=== PATIENT | male | born 1985 | race Caucasian/White ===

== ENCOUNTER 2020-02-18 00:54 | Emergency (ER) | payer MEDICARE, MEDICAID ==
--- NOTE | 2020-02-18 02:10 | RADIOLOGY REPORT (SQ) ---
CLINICAL HISTORY: FOREIGN BODY COMPARISON: None. TECHNIQUE: XR NECK SOFT TISSUE 02/18/2020 12:00 AM CDT FINDINGS: There are degenerative changes of the lower cervical spine. There is no convincing radiopaque foreign body. Prevertebral soft tissues are normal. Epiglottis and aryepiglottic folds are normal. The airway is clear. IMPRESSION: No radiopaque foreign body.
--- NOTE | 2020-02-18 02:40 | ER Document Report ---
ED Foreign Body - General Chief Complaint: Swallowed Foreign Body Stated Complaint: SWOLLEN FOREIGN OBJECT Time Seen by Provider: 02/18/20 02:28 Notes: CHIEF COMPLAINT: Possible foreign body ingestion HPI: 35-year-old male presenting for possible foreign body ingestion. Patient states that he believes he swallowed a partial denture with 2 teeth in it. He is concerned it feels stuck in the anterior left lower neck. States he is able to swallow his saliva but states he feels something sharp stabbing him every time he swallows. No voice change. No vomiting. ROS: See HPI - all other systems were reviewed and are otherwise negative Constitutional: no fever Eyes: no drainage, no blurred vision ENT: no runny nose, + sore throat Cardiovascular: no chest pain Resp: no SOB, no cough GI: no vomiting, no diarrhea, no abdominal pain : no dysuria Integumentary: no rash Allergy: no hives Musculoskeletal: no extremity pain or swelling Neurological: no numbness/tingling, no weakness MEDICATIONS: I agree with the patient medications as charted by the RN. ALLERGIES: I agree with the allergies as charted by the RN. PAST MEDICAL HISTORY/PAST SURGICAL HISTORY: Reviewed and agree as charted by RN. SOCIAL HISTORY: Reviewed and agree as charted by RN. FAMILY HISTORY: No significant familial comorbid conditions directly related to patient complaint EXAM: Reviewed vital signs as charted by RN. CONSTITUTIONAL: Alert and oriented and responds appropriately to questions. Well-appearing; well-nourished HEAD: Normocephalic; atraumatic EYES: PERRL; Conjunctivae clear, sclerae non-icteric ENT: normal nose; no rhinorrhea; moist mucous membranes; pharynx without lesions noted, no uvula edema or deviation, no tonsillar hypertrophy, phonation normal NECK: Supple without meningismus; non-tender; no cervical lymphadenopathy, no masses. No palpable foreign body in the anterior neck CARD: RRR; no murmurs, no clicks, no rubs, no gallops; symmetric distal pulses RESP: Normal chest excursion without splinting or tachypnea; breath sounds clear and equal bilaterally; no wheezes, no rhonchi, no rales, pulse oximetry 98% on room air not hypoxic ABD/GI: Normal bowel sounds; non-distended; soft, non-tender, no rebound, no guarding; no palpable organomegaly or masses. BACK: The back appears normal and is non-tender to palpation, there is no CVA tenderness EXT: Normal ROM in all joints; no cyanosis, no effusions, no edema SKIN: Normal color for age and race; warm; dry; good turgor; no acute lesions noted NEURO: Moves all extremities equally; Motor and sensory function intact PSYCH: The patient's mood and manner are appropriate. Grooming and personal hygiene are appropriate. MDM: 35-year-old male possible foreign body in the throat. Initial imaging soft tissue neck was read as negative by the radiologist. The x-ray techs are calling the radiologist having reviewed the film prior to taking x-rays of the chest and abdomen to continue looking for the foreign body. - Related Data Allergies/Adverse Reactions: duloxetine [From Cymbalta] Allergy (Verified 02/18/20 01:29) Past Medical History - Social History Smoking Status: Current Every Day Smoker Family History: Reviewed & Not Pertinent Patient has homicidal ideation: No Physical Exam - Vital signs Vitals: Temp Pulse Resp BP Pulse Ox 98.1 F 64 18 126/71 H 95 02/18/20 01:11 02/18/20 01:11 02/18/20 01:02/18/20 01:11 02/18/20 01:11 Course - Re-evaluation Re-evalutation: 02/18/20 03:34 Patient is declining further imaging at this time. He is alert and oriented and competent to make a decision about his testing. Patient is telling the nurse that he believes he may have taken his partials out and put them on the nightstand but he did not look before coming to the hospital. He is having no difficulty swallowing. He has no voice change and no difficulty speaking. The x-ray tech had a second radiologist review his soft tissue neck imaging and again they did not determine that there was a foreign body present. Patient is aware that we cannot completely rule out a foreign body in his chest or abdomen without further imaging. He verbalizes understanding of this. He will return for any concerns or any difficulty swallowing - Vital Signs Vital signs: Temp Pulse Resp BP Pulse Ox 98.1 F 64 18 126/71 H 95 02/18/20 01:26 02/18/20 01:11 02/18/20 01:11 02/18/20 01:11 02/18/20 01:11 Discharge - Discharge Clinical Impression: Foreign body Condition: Stable Disposition: HOME, SELF-CARE Additional Instructions: You have declined further imaging or testing in the emergency department [place]. The neck x-ray was read as negative for foreign body by 2 different radiologists [place]. We cannot definitively say that you did not swallow the foreign body without further imaging. If you have further concerns that you may have ingested or swallowed your partial denture please return for reevaluation otherwise follow-up with your primary care provider for further management and evaluation
[2020-02-18 03:48] VITALS: BP 119/79
== END 2020-02-18 03:48 | disposition home or self-care (01) ==
LOC: ER 00:54
DX: T18.9XXA Foreign body of alimentary tract, part unspecified, initial encounter (principal); X58.XXXA Exposure to other specified factors, initial encounter; F17.200 Nicotine dependence, unspecified, uncomplicated
CPT/HCPCS: 70360; 99283

== ENCOUNTER 2020-03-03 18:21 | Emergency (ER) | payer MEDICARE, MEDICAID ==
[2020-03-03] MEDS ORDERED: TRAMADOL HCL 50 MG TABLET PO ONE (18:51)
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
--- NOTE | 2020-03-03 19:59 | RADIOLOGY REPORT (SQ) ---
EXAM DESCRIPTION: CT HEAD WITHOUT IMAGES COMPLETED DATE/TIME: 03/03/2020 6:42 pm REASON FOR STUDY: pain COMPARISON: None. TECHNIQUE: Axial images acquired through the brain without intravenous contrast. Images reviewed wi th bone, brain and subdural windows. Additional sagittal and coronal reconstructions were generated. Images stored on PACS. All CT scanners at this facility use dose modulation, iterative reconstruction, and/or weight based d osing when appropriate to reduce radiation dose to as low as reasonably achievable (ALARA). [facility]: Dose Right [facility]: CareDose [facility]: Dose Right [facility]: Teradose 4D [facility]: Smart Slyce RADIATION DOSE: CT Rad equipment meets quality standard of care and radiation dose reduction techniq ues were employed. CTDIvol: 53.2 mGy. DLP: 937 mGy-cm. mGy. LIMITATIONS: None. FINDINGS: VENTRICLES: XR vacuo prominence of the right lateral ventricle. Left ventriculoperitoneal shunt catheter with tip at the midline left ventricle. No evidence of acute hydrocephalus. CEREBRUM: Chronic encephalomalacia and gliosis in the right frontal, temporal and parietal lobe, cons istent with prior postsurgical and/or posttraumatic change. [facility] normal gallardo-white matter differenti ation otherwise. No acute intracranial hemorrhage. No mass or mass effect. CEREBELLUM: No masses. No hemorrhage. No alteration of density. No evidence for acute infarction. EXTRAAXIAL SPACES: No fluid collections. No masses. ORBITS AND GLOBE: Chronic right medial orbital fracture. No acute orbital fracture. No intra- or ex traconal masses or inflammatory change. Normal contour of globe without masses. CALVARIUM: Right frontotemporal parietal craniotomy and chronic calcifications of the right dura cons istent with postsurgical change. No suspicious bone lesions or acute fracture. PARANASAL SINUSES: No fluid or mucosal thickening. SOFT TISSUES: No mass or hematoma. OTHER: No other significant finding. IMPRESSION: 1. No acute intracranial hemorrhage, mass, or evidence of acute territorial infarct. 2. Chronic encephalomalacia and gliosis in the right frontal, temporal and parietal lobe consistent w ith prior posttraumatic/post surgical change. 3. Left ventriculoperitoneal shunt in good position. No evidence of acute hydrocephalus. 4. Postoperative changes of prior right craniectomy without evidence of complication. EVIDENCE OF ACUTE STROKE: NO. COMMENT: Quality ID # [id number]: Final reports with documentation of one or more dose reduction techniques (e.g., Automated exposure control, adjustment of the mA and/or kV according to patient size, use of iterative reconstruction technique) TECHNICAL DOCUMENTATION: JOB ID: [id number] 2010 [employer]- All Rights Reserved Reading location - IP/workstation name: [email or web address]
[2020-03-03 20:32] VITALS: BP 110/67
== END 2020-03-03 20:31 | disposition home or self-care (01) ==
LOC: ER 18:21
DX: R51 Headache (principal); G93.89 Other specified disorders of brain; Z98.2 Presence of cerebrospinal fluid drainage device; Z88.8 Allergy status to other drugs, medicaments and biological substances
CPT/HCPCS: 99284; 70450; A9270

== ENCOUNTER 2020-06-03 22:28 | Emergency (ER) | payer MEDICARE, MEDICAID ==
--- NOTE | 2020-06-04 00:28 | ER Document Report ---
ED Medical Screen (RME) - General Chief Complaint: Chest Pain Stated Complaint: CHEST PAINS Time Seen by Provider: 06/04/20 00:22 Notes: HPI: 35-year-old male with history of TBI presenting with onset of sharp left- sided chest pain with radiation into the left shoulder with no shortness of breath no associated nausea vomiting that began around 06/19/2010 lasted approximately 45 minutes and then resolved. Did not change with position or movement patient was at rest laying down when the pain started. States that he had discomfort similar to this when he was in [place] in October or November and did go to the hospital and was evaluated by a steel wheel engraver but states he did not have a stress test done. Patient has a strong family history of coronary artery disease. Patient is pain-free at this time PHYSICAL EXAMINATION: EKG normal sinus rhythm ventricular rate of 58 with an incomplete right bundle branch block. Lung sounds are clear to auscultation regular rate and rhythm. No reproducible pain on palpation of the chest wall I have greeted and performed a rapid initial assessment of this patient. A comprehensive ED assessment and evaluation of the patient, analysis of test results and completion of medical decision making process will be conducted by an additional ED providers. - Related Data Allergies/Adverse Reactions: duloxetine [From Cymbalta] Allergy (Verified 03/03/20 19:00) Home Medications: gabapentin,hytrin,omeprazole, keppra, minocycline, buspar, trazadone, mvi Physical Exam - Vital signs Vitals: Temp Pulse Resp BP Pulse Ox 98.2 F 79 18 112/75 97 06/03/20 22:51 06/03/20 22:51 06/03/20 22:51 06/03/20 22:51 06/03/20 22:51 Course - Vital Signs Vital signs: Temp Pulse Resp BP Pulse Ox 98.2 F 79 18 112/75 97 06/03/20 22:51 06/03/20 22:51 06/03/20 22:51 06/03/20 22:51 06/03/20 22:51
[2020-06-04 00:53] LABS: ABSOLUTE EOSINOPHILS # (AUTO) 0.4 10^3/uL (0.0-0.6); ABSOLUTE MONOCYTES (AUTO) 0.7 10^3/uL (0.1-1.4); BASOPHILS % (AUTO) 0.4 % (0-2); EOSINOPHILS % (AUTO) 3.8 % (0-6); RED CELL DISTRIBUTION WIDTH 12.6 % (11.5-14.0); TOTAL CELLS COUNTED % (AUTO) 100 %; WHITE BLOOD COUNT 9.8 10^3/uL (4.0-10.5)
[2020-06-04 01:01] LABS: ABSOLUTE LYMPHOCYTES (AUTO) 2.9 10^3/uL (0.5-4.7); ABSOLUTE NEUT (AUTO) 5.7 10^3/uL (1.7-8.2); HEMATOCRIT 48.2 % (37.9-51.0); HEMOGLOBIN 17.2 g/dL (13.5-17.0); LYMPHOCYTES % (AUTO) 29.9 % (13-45); MEAN CORPUSCULAR HEMOGLOBIN 32.8 pg (27.0-33.4); MEAN CORPUSCULAR HGB CONC 35.7 g/dL (32.0-36.0); MEAN CORPUSCULAR VOLUME 92 fl (80-97); MONOCYTES % (AUTO) 7.4 % (3-13); PLATELET COUNT 273 10^3/uL (150-450); RED BLOOD COUNT 5.24 10^6/uL (4.35-5.55); SEGMENTED NEUTROPHILS % (AUTO) 58.5 % (42-78)
--- NOTE | 2020-06-04 01:10 | RADIOLOGY REPORT (SQ) ---
EXAM DESCRIPTION: XR CHEST 2 VIEWS COMPLETED DATE/TME: 06/04/2020 00:00 CLINICAL HISTORY: 35 years, Male, chest pain COMPARISON: None. NUMBER OF VIEWS: 2 TECHNIQUE: 2 views of the chest LIMITATIONS: None. FINDINGS: There are size is normal. Lungs are clear. No pneumothorax. Old right rib fractures IMPRESSION: No acute cardiopulmonary process copyright 2011 [employer]- All Rights Reserved
[2020-06-04 01:27] LABS: CREATINE KINASE MB 0.48 ng/mL (<4.55)
[2020-06-04 01:28] LABS: TROPONIN I < 0.012 ng/mL
[2020-06-04 01:59] LABS: ALBUMIN 4.7 g/dL (3.5-5.0); ALKALINE PHOSPHATASE 84 U/L (38-126); ANION GAP 8 (5-19); ASPARTATE AMINO TRANSFERASE 26 U/L (17-59); BILIRUBIN,DIRECT 0.3 mg/dL (0.0-0.4); BILIRUBIN,TOTAL 0.5 mg/dL (0.2-1.3); BLOOD UREA NITROGEN 16 mg/dL (7-20); CALCIUM 10.2 mg/dL (8.4-10.2); CARBON DIOXIDE 29 mmol/L (22-30); CHLORIDE 109 mmol/L (98-107); CREATINE KINASE 40 U/L (55-170); GLUCOSE 111 mg/dL (75-110); TOTAL PROTEIN 7.1 g/dL (6.3-8.2)
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
[2020-06-04 06:46] VITALS: BP 114/78
--- NOTE | 2020-06-04 09:13 | EKG REPORT ---
SEVERITY:- ABNORMAL ECG - SINUS RHYTHM INCOMPLETE RIGHT BUNDLE BRANCH BLOCK : Confirmed by: Matthew Agudelo 04-Jun-2020 09:12:06
== END 2020-06-04 06:57 | disposition home or self-care (01) ==
LOC: ER 22:28
DX: R07.9 Chest pain, unspecified (principal); R00.2 Palpitations; R00.1 Bradycardia, unspecified; I45.10 Unspecified right bundle-branch block; F17.200 Nicotine dependence, unspecified, uncomplicated; G40.909 Epilepsy, unspecified, not intractable, without status epilepticus; G89.4 Chronic pain syndrome; Z79.899 Other long term (current) drug therapy; Z82.49 Family history of ischemic heart disease and other diseases of the circulatory system
CPT/HCPCS: 36415; 71046; 80053; 82550; 82553; 84484; 85025; 93005; 93010; 99285